=== PATIENT | female | born 1970 | race Hispanic/Latino ===

== ENCOUNTER 2024-11-23 14:52 | Emergency (ER) | payer OTHER ==
[~2024-11-23] VITALS: Ht 160 cm; Wt 88.5 kg
[2024-11-23 15:08] VITALS: BP 149/89; PULSE 72; RESP 18; TEMP 98.4; O2SAT 99
--- NOTE | 2024-11-23 15:10 | NUR ---
[facility] CONTACTED BY PT [employer]
--- NOTE | 2024-11-23 15:11 | ERN ---
ED Note History of Present Illness Stated Complaint: DOG BITE Chief Complaint: Animal Bite Time Seen by MD: 14:55 Time Seen by Midlevel: 14:56 Dictation: 54-year-old female presents to the emergency department due to report of having sustained a dog bite injury to the left forearm for 14 hours prior to arrival. She states that she was walking her dog when another dog attacked her dog. At that point, she attempted to defend her dog and the other dog bit her left on the forearm. At this time, she rates her level of discomfort as a 6/10. Patient states that law enforcement was notified and the dog was going to get picked up by animal control. The patient states that the radiologic tech of the dog states that it was up-to-date with the rabies vaccines. Upon initial evaluation, there is no signs of tendon injury and no active bleeding is noted. Allergies: Coded Allergies: No Known Drug Allergies (Unverified Allergy, Unknown, 11/23/24) Emergency Care MEDICAL ACCOUNTS RECEIVABLE SPECIALIST: None Past Medical History Past Medical History: No Pertinent History Surgical History: Other Surgical History Other: SHEMAR HIP AND LEFT KNEE PSYCH History: no pertinent psych hx History: Not Applicable RN Note Reviewed/Agreed w/PFSH: Yes Review of System Dictation MS/Extremity: Left forearm pain. Skin: Dog bite left forearm Initial Vital Sign VS Vital Signs Date Time Temp Pulse Resp B/P (MAP) Pulse Ox O2 Delivery O2 Flow Rate FiO2 11/23/24 14:55 98.4 72 18 149/89 99 Room Air 0 11/23/24 15:08 21 Physical Exam Dictation General: awake, alert, NAD Head/Face: Normocephalic, atraumatic Eyes: PERRL, EOMI ENT: Oral mucosa moist Neck: Trachea midline, supple Cardiovascular: RRR, no edema Respiratory: Symmetrical, non-labored Abdomen: Soft, non-tender, non-distended, no guarding. Skin: Warm, multiple abrasions noted to the palmar and dorsal aspect of the left forearm. MS/Extremity: Painful range of motion, swelling and tenderness of the left forearm. Normal neurovascular examination. Neuro: COAx4, GCS 15, steady gait, Psych: Normal behavior, mood, and affect normal Results (Laboratory/Radiology) X-RAY Comment: Two-view x-ray of the left forearm with no cortical anomalies or radiopaque foreign bodies as interpreted by me. ED Course ED Course Orders Procedure Category Date Status Time Forearm 2vws Lt RAD 11/23/24 Resulted 15:04 Acetaminophen 500mg PHA 11/23/24 Complete Tab (Tylenol 500mg T 15:30 Tetanus,Diphtheria PHA 11/23/24 Complete Tox [Adult] (Diphther 15:30 Wound Care (Er) CPOE 11/23/24 Transmitted 15:04 Ceftriaxone 1g Vial PHA 11/23/24 Complete (Rocephine 1g Inj) 16:00 Current Medications Medications (Trade) Dose Ordered Sig/Maggie Route PRN Reason Start Time Stop Time Status Last Admin Dose Admin Acetaminophen (TYLenol 500MG TAB) 1,000 mg ONCE ONCE PO 11/23/24 15:30 11/23/24 15:31 DC 11/23/24 15:16 Ceftriaxone Sodium (ROCEphine 1G INJ) 1 gm ONCE ONCE IM 11/23/24 16:00 11/23/24 16:01 DC 11/23/24 15:53 Tetanus/ Diphtheria Toxoids Adsorbed (DiphthERIA-teTANUS TOXOID [ADULT]/ DECAVAC) 0.5 ml ONCE ONCE IM 11/23/24 15:30 11/23/24 15:31 DC 11/23/24 15:18 Vital Signs Date Time Temp Pulse Resp B/P (MAP) Pulse Ox O2 Delivery O2 Flow Rate FiO2 11/23/24 15:08 98.4 72 18 149/89 99 Room Air* 0 21 11/23/24 14:55 98.4 72 18 149/89 99 Room Air 0 Medical Decision Making MDM MDM: Differential diagnosis: Rationale: Tests considered and ordered secondary to shared decision making include: Previous outside records reviewed: Old ER visits. Risk of complication and/or morbidity or mortality of patient management: None Medications-Per medication reconciliation Need for hospitalization: Patient does not meet criteria for hospitalization. Need for emergency major/minor surgery: No There are no social concerns with this patient. Prescription drug management Prescriptions will include symptomatic care Patient's prior external medical records from other ER visits were reviewed by me as indicated. Prior testing and results from previous visits were reviewed. Prior tests were taken into account with medical decision making and resource utilization, independent historian/historians were used to obtain complete medical history. I independently interpreted the test that were performed, results were reviewed by me and considered findings on radiology if ordered. Medical management and examination interpretation discussions were had by me with other qualified healthcare professionals as indicated for the patient's care. DX & DISP Disposition: Discharge Departure Impression: Primary Impression: Dog bite of left forearm Condition: Stable Scripts Amoxicillin/Potassium Clav (Amox Tr-K Clv 875-125 mg Tab) 875 Mg-125 Mg Tablet 1 EACH PO BID for 10 Days, #20 TAB 0 Refills Prov: LAILA WU 11/23/24 Referrals: SELF,REFERRAL (PCP) Time of Disposition: 16:11 LAILA WU Nov 23, 2024 15:11
[2024-11-23] MEDS: acetaMINOPHEN 500 MG TABLET PO ONE (15:16)
[2024-11-23] MEDS: teTANUS/diphthERIA TOXOID [ADULT] 0.5 ML VIAL IM ONE (15:18)
--- NOTE | 2024-11-23 15:45 | HMCIMG ---
Exam Type: FOREARM 2VWS LT Clinical Information: pain Comparison: None Findings: The bone examination is unremarkable. No fractures or dislocations are seen. No radiopaque foreign bodies are noted. Soft tissues are preserved. IMPRESSION: Normal examination.
[2024-11-23] MEDS: cefTRIAXone 1G VIAL IM ONE (15:53)
[2024-11-23] MEDS ORDERED: AMOX1TAB16 PO (16:10)
== END 2024-11-23 16:12 | disposition home or self-care (01) ==
LOC: EDH 14:52
DX: S51.852A Open bite of left forearm, initial encounter (principal); Z98.890 Other specified postprocedural states; W54.0XXA Bitten by dog, initial encounter; Y93.89 Activity, other specified; Y92.89 Other specified places as the place of occurrence of the external cause; Y99.8 Other external cause status
CPT/HCPCS: 99284; 90714; 73090; 96372; 90471; J0696